=== PATIENT | female | born 1995 | race Caucasian/White ===

== ENCOUNTER 2021-01-03 10:10 | Emergency (ER) | payer OTHER, SELFPAY ==
[2021-01-03 10:59] VITALS: BP 113/70; PULSE 86; RESP 18; TEMP 36.6; O2SAT 100
--- NOTE | 2021-01-03 11:32 | ED.URI ---
HPI - URI/Sore Throat General Chief Complaint: Upper Respiratory Infection Stated Complaint: fever,vomiting,cough Time Seen by Provider: 01/03/21 11:25 Source: patient and RN notes reviewed Mode of arrival: ambulatory Limitations: no limitations History of Present Illness HPI Narrative: Alida is a 25-year-old female patient who ambulated into the [facility]. Patient has a sore throat, dry cough for the last 2 days. Patient has been treating with cough drops and vitamin C. Patient's daughter was diagnosed with strep throat at [facility] today. MD elicited complaint: sore throat Related Data Allergies Allergy/AdvReac Type Severity Reaction Status Date / Time No Known Allergies Allergy Verified 01/03/21 11:14 Review of Systems Review of Systems: CONSTITUTIONAL: Denies body aches, fever, chills, or sweats. EYES: Denies visual changes, redness, or discharge. ENT: Denies rhinorrhea, congestion, + sore throat, or otalgia. CARDIOVASCULAR: Denies chest pain, palpitations, or edema. RESPIRATORY: Denies cough or dyspnea. GASTROINTESTINAL: Denies abdominal pain, nausea, vomiting, or diarrhea. GENITOURINARY: Denies dysuria or hematuria. SKIN: Denies rash, itching, or wounds. MUSCULOSKELETAL: Denies back pain, joint pain, or myalgia. NEUROLOGIC: Denies headache, numbness, tingling, or weakness. PSYCH: Denies depression or anxiety. All systems reviewed & are unremarkable except as noted in HPI and below PMFSH Comments At time of signature, I have reviewed and agree with nursing past medical, surgical, social and family history unless otherwise noted. Please see nursing chart for further information. There is no relevant family history pertinent to the presenting complaint Exam Narrative: GENERAL: Well-appearing, well-nourished, and in no acute distress. HEAD: Normocephalic, atraumatic. EYES: EOMI. No redness or drainage. Conjunctivae normal. ENT: Mucous membranes pink and moist. N nares erythemic with clear rhinorrhea. Tympanic membranes are dull with minimal bulging bilateral, no erythema posterior pharynx is erythemic with minimal postnasal drainage. Moderate edema without exudate Uvula midline. NECK: Normal AROM. Supple. posterior cervical right lymphadenopathy. CHEST: No respiratory distress. Clear to auscultation. HEART: Regular rate and rhythm. No murmur appreciated. Normal peripheral pulses. MUSCULOSKELETAL: No bony tenderness. EXTREMITIES: Normal range of motion. No edema. SKIN: Warm, dry, no rash. Capillary refill normal. Normal skin turgor. NEURO: No focal deficits. Alert and oriented x3. Gait steady. PSYCH: Normal affect. No signs of depression or anxiety. Course Vital Signs Vital signs: Vital Signs Temperature 36.6 C 01/03/21 10:59 Pulse Rate 86 01/03/21 10:59 Respiratory Rate 18 01/03/21 10:59 Blood Pressure 113/70 01/03/21 10:59 Pulse Oximetry 100 01/03/21 10:59 Temperature 36.6 C 01/03/21 10:59 Pulse Rate 86 01/03/21 10:59 Respiratory Rate 18 01/03/21 10:59 Blood Pressure 113/70 01/03/21 10:59 Pulse Oximetry 100 01/03/21 10:59 Reviewed MDM - URI/Sore Throat MDM Narrative Medical decision making narrative: Rapid strep is negative, throat culture will be sent to lab. Patient's daughter is positive for strep pharyngitis. Patient will be treated with amoxicillin 500 mg twice daily for the next 10 days. Differential Diagnosis Differential diagnosis: Likely upper respiratory infection, otitis media, sinusitis and pharyngitis Medical Records Attestation: I reviewed the patient's medical records. Lab Data Attestation: I reviewed the patient's lab results. Labs: Strep Screen Presumptive Negative *(Reference Range: Negative)* Critical Care Time Critical Care Time Critical Care Time: No Discharge Plan Discharge Clinical Impression: Pharyngitis Qualifiers: Pharyngitis/tonsillitis etiology: un
== END 2021-01-03 11:43 | disposition home or self-care (01) ==
PROVIDERS: Emergency Provider Nurse Practitioner Family
DX: J02.9 Acute pharyngitis, unspecified (principal)
CPT/HCPCS: 87081; 87880; 99203; G0463